=== PATIENT | male | born 1955 | race Caucasian/White ===

== ENCOUNTER → 2019-08-13 | Outpatient (CLI) | payer OTHER | LOC: SJCVCIMAG 10:43 | DX: I25.10 Atherosclerotic heart disease of native coronary artery without angina pectoris (principal); E78.5 Hyperlipidemia, unspecified; Z95.1 Presence of aortocoronary bypass graft ==

== ENCOUNTER → 2021-03-01 | Outpatient (CLI) | payer OTHER | LOC: SJCVCIMAG 08:53 | PROVIDERS: ATTEND Internal Medicine Cardiovascular Disease | DX: I25.10 Atherosclerotic heart disease of native coronary artery without angina pectoris (principal) ==

== ENCOUNTER → 2021-04-03 | Outpatient (CLI) | payer OTHER ==
[~2021-04-03] MED LIST: ASA81BEC PO; MULTI VITAMIN1 EACH PO; OMEPRAZOLE40 MG PO; PENNSAID112 GM TOP; REPATHA SU140 MG/1 M SUBQ; TYLENOL ARTHRI650 MG PO; VITAMIN C500 M2 PO
[2021-04-03 09:17] LABS: HEMATOCRIT 48.1 % (42.0-52.0); HEMOGLOBIN 16.3 gm/dL (14.0-18.0); MCH 29.3 pg (26.0-34.0); MCHC 33.9 g/dL (28.0-37.0); MCV 86.3 fL (80.0-100.0); RBC 5.57 mil/uL (4.50-6.00); RDW 14.6 % (10.5-14.5)
[2021-04-03 09:20] LABS: URINE BILIRUBIN NEGATIVE (Negative); URINE BLOOD NEGATIVE (Negative); URINE CLARITY CLEAR; URINE COLOR YELLOW; URINE GLUCOSE-RANDOM* NEGATIVE (Negative); URINE KETONES NEGATIVE (Negative); URINE LEUKOCYTES-REFLEX NEGATIVE (Negative); URINE NITRITE-REFLEX NEGATIVE (Negative); URINE PROTEIN (DIPSTICK) NEGATIVE (Negative); URINE SPECIFIC GRAVITY >= 1.030 (1.005-1.035); URINE UROBILINOGEN 0.2 E.U./dl (0.2-1.0)
[2021-04-03 09:23] LABS: INR 1.01
[2021-04-03 09:56] LABS: ALBUMIN 4.1 g/dL (3.4-5.0); CALCIUM 9.2 mg/dL (8.5-10.1); POTASSIUM 4.2 mmol/L (3.5-5.1)
== END ==
LOC: PAC 06:49
PROVIDERS: ATTEND Orthopaedic Surgery
DX: Z01.812 Encounter for preprocedural laboratory examination (principal); M17.9 Osteoarthritis of knee, unspecified

== ENCOUNTER → 2021-04-11 | Outpatient (CLI) | payer OTHER | LOC: LAB 10:29 | PROVIDERS: ATTEND Student in an Organized Health Care Education/Training Program | DX: Z01.812 Encounter for preprocedural laboratory examination (principal); Z20.822 Contact with and (suspected) exposure to COVID-19 ==

== ENCOUNTER 2021-04-20 08:21 | Observation (INO) | payer OTHER ==
[~2021-04-20] VITALS: Ht 185.4 cm; Wt 97.5 kg
--- NOTE | ~2021-04-20 | O ---
[facility] [place], [place] [address] OPERATIVE REPORT Name: GAGAN HERNANDES Room #: 443-P [facility] MSami#: [id number] Admission: 04/20/21 Attend Phys: Jarrell Christy MD Discharge: Date of : 59 Report #: [id number] THIS REPORT FOR: cc: Oscar Jade MD, John H. MD Abraham,Jarrell Bland MD ~ DATE OF SERVICE: 04/20/2021 PREOPERATIVE DIAGNOSIS: Left knee osteoarthritis. POSTOPERATIVE DIAGNOSIS: Left knee osteoarthritis. PROCEDURE: Left total knee arthroplasty using Navio robotic assistance. SURGEON: Jarrell Christy MD ENTRY LEVEL ELECTRICAL ENGINEER: Juana Lewis PA-C INDICATION FOR ENTRY LEVEL ELECTRICAL ENGINEER: Throughout the case, extensive retraction, manipulation of the knee was required. This was afforded to me by my it assistant. ANESTHESIA: LMA with adductor canal block. IMPLANTS: [employer] size 7 Journey II BCS Oxinium femur, size 6 tibia, size 9 ____. TOURNIQUET TIME: 57 minutes. ESTIMATED BLOOD LOSS: 25 mL. COMPLICATIONS: None. SPECIMENS: None. CONDITION UPON LEAVING THE OR: Stable. INDICATIONS FOR PROCEDURE: The patient is a 65-year-old gentleman with severe left knee osteoarthritis. He has failed conservative measures for this and after discussion with him, he elected for left total knee arthroplasty. DESCRIPTION OF PROCEDURE: Risks, benefits, alternatives, complications were discussed in detail with the patient including but not limited to risk of anesthesia, risk of damage to nerves, arteries, blood vessels, risk for infection, bleeding, risk for continued knee pain, need for reoperation. Informed consent was obtained from the patient. Left knee was appropriately marked in the preoperative holding area. IV Ancef was given for preoperative [address] [address] OPERATIVE REPORT Name: GAGAN HERNANDES Room #: 443-P [facility] Everardo Morley#: [id number] Admission: 04/20/21 Attend Phys: Jarrell Christy MD Discharge: Date of : 59 Report #: [id number] antibiotics. Adductor canal block was placed by Anesthesia. He was brought to the operating room and placed in the supine position on the operating room table. LMA anesthesia was induced without complication. ____ all in the operating room in agreement. Left lower extremity was exsanguinated, tourniquet was inflated. Tourniquet time was 57 minutes. ____. Dissection was taken down sharply to the fascia and deep flaps were developed medially and laterally. Fresh 10 blade was used to make a medial parapatellar arthrotomy and the knee was inspected. There was severe tricompartmental osteoarthritis. ACL and PCL were removed sharply. Reference pins were placed in the femur and the tibia. The knee was digitally mapped using the DueProps robotic system. Intraoperative plan was made. We sized the size 7 femur, the size 6 tibia and a 10 spacer. After acceptance of the intraoperative plan, the distal femoral cut was made with Navio bur. Distal femoral cutting block was pinned in place and chamfer cuts were made. Attention was turned to the tibia. Remainder of the menisci removed with Bovie cautery. Tibial resection guide was pinned in place using Navio for placement and tibial resection was made. Flexion and extension gaps were checked and found to have good balance in flexion and extension both medially and laterally. Tibia sized, found to be a size 6. A size 6 tibial trial was placed, pinned and punched. A size 7 femoral trial was placed and box cut was made. This was then trialed with a size 9 polyethylene. Size 9 polyethylene demonstrated 1-2 mm of laxity medially throughout range of motion of the knee, laterally did open up to about 3 mm in deep flexion. It was felt we can make up for this with the constrained implant. A 9 mm of bone was resected from the posterior surface of the patella and a size 35 patellar trial button was placed. Knee was taken through range of motion, found to be stable, found to have good patellar tracking. Trial components were removed. Bone ends were thoroughly irrigated with normal saline. A final size 6 tibia, size 7 Journey II BCS Oxinium femur and a size 35 patella were cemented in place using standard cementation techniques. While the cement cured, a periarticular injection consisting of morphine, ropivacaine, epinephrine, Toradol was placed around the knee joint capsule. After the cement cured, tourniquet was deflated. Hemostasis was obtained with Bovie cautery. A final size 9 constrained polyethylene was placed. A gram of vancomycin was placed deep in the joint. The fascia was closed with 0 Vicryl. Skin was closed with 2-0 Vicryl, 3-0 Monocryl. Dermabond and a ALLEGRA dressing was applied. The patient tolerated this procedure well, went to the recovery room under care of Anesthesia postoperatively. By: [id number] Jarrell Christy MD /nt
--- NOTE | 2021-04-20 09:15 | NUR ---
Estevan total knee. CM visited with him at bedside. Intro to cm and dcp. He is A & o x 4, and able to make his needs know. Lives at home with his . 3 small steps to enter, basement steps but he will not have to go down to the basement. Has fww already. Has outpatient therapy set up on saturday04/24/21 her at [facility].
[2021-04-20 10:30] VITALS: BP 129/89
[2021-04-20 16:20] VITALS: BP 135/95
--- NOTE | 2021-04-20 17:05 | NUR ---
ADMITTED TO 4S AFTER RIGHT TOTAL KNEE REPLACEMENT. A/O X 4. ON 4L O2 VIA NASAL CANNULA DUE TO O2 DROPPINF INTO THE 80'S. LEFT KNEE ALLEGRA DRESSING, POLAR PACK TO KNEE, D5 1/2 NS INFUSING. AT BEDSIDE. PAIN LEFT KNEE 11/10. MORPHINE GIVEN FOR PAIN. PT WORKED WITH PATIENT, WALKED AROUND UNIT.
[2021-04-20 20:23] VITALS: BP 121/80
--- NOTE | 2021-04-21 05:40 | NUR ---
ASSUMED CARE AT APPROX 1930 OF 04/10. PATIENT IS A&OX4, DENIES SHORTNESS OF BREATH, ON CONTINUOUS 2L OF O2, WITH O2Sat REMAINING ABOVE 90%. LEFT KNEE ALLEGRA DRESSING IN PLACE AND INTACT. REPORTS PAIN IN LEFT KNEE,MANAGED W/ PRN AND SCHEDULED ORAL PAIN MEDICATION, COLD THERAPY ALSO APPLIED TO KNEE. D5&0.5NS RUNNING AT 100ML/HR VIA LEFT HAND IV ACCESS, NO S/S OF INFECTION OR INFILTRATION NOTED. USED URINAL IN BED DURING THE NIGHT. FALL PRECAUTIONS IN PLACE, CALL LIGHT WITHIN REACH. WILL CONTINUE TO MONITOR.
--- NOTE | 2021-04-21 08:05 | NUR ---
A/O X 4. ON 2 L O2 VIA NASAL CANNULA. STAND BY ASSIST WITH WALKER. LEFT HAND IV WITH D5 1/2 NS INFUSING @ 100 MLS/HR. ALLEGRA DRESSING TO LEFT KNEE WITH POLAR PACK IN PLACE. PAIN 3/10 TO LEFT KNEE. POSSIBLE D/C HOME TODAY.
[2021-04-21 08:26] VITALS: BP 119/84
--- NOTE | 2021-04-21 09:15 | NUR ---
Status post TKA. Cm visited with him at bedside. A & o x 3, and able to make his needs know. Live home with samaria. Independent. No DME. 2 steps in to the home and then basement stairs and does not have to go down there. Manage own medication. Drives. Will need a FWW, ok with referral being [facility] and therapy will issue fww from here before he goes home today. Plans on doing outpatient rehab at [facility].
[2021-04-21 11:19] VITALS: BP 119/84
--- NOTE | 2021-04-21 12:11 | NUR ---
FWW script and referral faxed to [facility] intake. They are aware of the referral. Our PT to issue to the pt prior to dc today.
== END 2021-04-21 12:28 | disposition home or self-care (01) ==
LOC: OR → 4S 14:57 → OR 17:11 → 4S 04-21 12:28
PROVIDERS: ADMIT Orthopaedic Surgery; ATTEND Orthopaedic Surgery
DX: M17.12 Unilateral primary osteoarthritis, left knee (principal); M25.562 Pain in left knee; Z20.822 Contact with and (suspected) exposure to COVID-19; Z79.899 Other long term (current) drug therapy
CPT/HCPCS: 50010; 50101; 50415; 50954; 51130; 51225; 51320; 52001; 52282; 53000; 53078; 53365; 54118; 56527; 56528; 57095; 57103; 57110; 57127; 57180; 62110; 62900; 64043; 65060; 70005

== ENCOUNTER → 2021-05-30 | Outpatient (CLI) | payer OTHER | LOC: SJCVCIMAG 08:18 | PROVIDERS: ATTEND Internal Medicine Cardiovascular Disease | DX: M79.605 Pain in left leg (principal); M79.89 Other specified soft tissue disorders; I25.10 Atherosclerotic heart disease of native coronary artery without angina pectoris; E78.00 Pure hypercholesterolemia, unspecified; Z95.5 Presence of coronary angioplasty implant and graft; Z72.89 Other problems related to lifestyle; Z88.5 Allergy status to narcotic agent; Z79.899 Other long term (current) drug therapy ==